=== PATIENT | female | born 1970 | race Caucasian/White ===

== ENCOUNTER 2016-09-17 15:33 | Emergency (ER) | payer MEDICARE, BC ==
[2016-09-17] MEDS ORDERED: OPTIRAY 350 100 ML VIAL HMH IV ONE (15:34)
[2016-09-17] MEDS ORDERED: DILAUDID 1 MG/ML AMP ONE ×2 (18:06→20:57)
[2016-09-17] MEDS ORDERED: SODIUM CHLORIDE 0.9% 1,000 ML ONE (18:07)
== END 2016-09-17 22:31 | disposition home or self-care (01) ==
LOC: ER 15:33
DX: R10.30 Lower abdominal pain, unspecified (principal); Z98.890 Other specified postprocedural states; I10 Essential (primary) hypertension; Z79.82 Long term (current) use of aspirin; Z79.899 Other long term (current) drug therapy
CPT/HCPCS: 36415; 74177; 80053; 80307; 81001; 83690; 85025; 87088; 96361; 96374; 96376; 99284; J1170; Q9967